=== PATIENT | female | born 1975 | race Caucasian/White ===

== ENCOUNTER 2016-05-26 14:01 | Emergency (ER) | payer BC ==
--- NOTE | 2016-05-26 14:28 | ERNOTE ---
Medical Problem HPI - General Chief Complaint: Drug Overdose Time Seen by Provider: 05/26/16 14:11 Source: patient, EMS Exam Limitations: no limitations - Immun/Allergies/Home Medications Immunizations: IMMUNIZATION HX Immunizations Up to Date Yes History of Influenza Vaccine Yes Hx Pneumococcal Vaccination No Allergies/Adverse Reactions: Allergies paroxetine HCl [From Paxil] Allergy (Mild, Verified 05/26/16 14:11) Sulfa (Sulfonamide Antibiotics) [Sulfa(Sulfonamide Antibiotics)] Allergy (Mild, Verified 05/26/16 14:11) Penicillins Allergy (Verified 05/26/16 14:11) Home Medications: HOME MEDICATIONS lamoTRIgine [Lamictal Xr] 200 mg PO HS 01/29/14 [Last Taken Unknown] Venlafaxine HCl [Effexor] 225 mg PO DAILY 08/11/14 [Last Taken Unknown] clonazePAM [Klonopin] 0.5 mg PO QID PRN 08/11/14 [Last Taken Unknown] Cyclobenzaprine HCl [Flexeril] 10 mg PO TID PRN #30 tab 09/08/15 [Last Taken Unknown] Naproxen [Naprosyn] 500 mg PO BID PRN #60 tab 09/08/15 [Last Taken Unknown] Lidocaine 700 mg TP BID #60 adh..patch 09/09/15 [Last Taken Unknown] Diazepam [Valium] 5 mg PO BID PRN #10 tab 09/13/15 [Last Taken Unknown] oxyCODONE HCL/ACETAMINOPHEN [Percocet 5 MG/325 MG] 1 tab PO Q4H PRN #20 tab [Last Taken Unknown] tiZANidine HCL [Zanaflex] 4 mg PO Q8H PRN #30 tab 09/16/15 [Last Taken Unknown] - History of Present History Narrative: Patient was having an acute stress life situation, and in brief time of profound frustration and overwhelming stress the patient took approximately 40 mg of Klonopin. Denies being suicidal at this juncture. She does admit to being profoundly overwhelmed with the stresses of life. She understands that she needs help and that is why she called the ambulance service after taking approximately 80 of the 0.5 mg Klonopin tablets. Timing: constant Severity: mild Review of Systems - Review of Systems Constitutional: Present: See HPI EYE: Present: no symptoms reported ENT: Present: no symptoms reported Respiratory: Present: no symptoms reported Cardiology: Present: no symptoms reported Gastrointestinal/Abdominal: Present: no symptoms reported Genitourinary: Present: no symptoms reported Musculoskeletal: Present: no symptoms reported Skin: Present: no symptoms reported Neurological: Present: no symptoms reported Endocrine: Present: no symptoms reported Hematologic/Lymphatic: Present: no symptoms reported Psych: Present: emotional problems - Patient's Past Medical History Patient History - Medical: Anxiety Patient History - Cardiac/Respiratory: No pertinent hx Patient History - Cancer: No Hx of Cancer Patient History - Surgical Procedures: No surgical history Patient History - Other: None LMP (Calendar): 09/02/15 - Social History Living Situations: home Abuse History: No History of abuse Psych History: Hx of Anxiety Alcohol Use: occasionally Drug Use: none - Immunizations Immunizations Up to Date: Yes Hx Pneumococcal Vaccination: No History of Influenza Vaccine: Yes Physical Exam - Physical Exam General Appearance: Present: wd/wn, alert, moderate distress, other - mostly profound emotional stress Eye Exam: Normal inspection: bilateral, PERRL: bilateral Ears, Nose, Throat: Present: normal ENT inspection, H, normal pharynx Neck: Present: normal inspection, nontender Respiratory: Present: no respiratory distress, normal breath sounds, no accessory muscle use, chest nontender, lungs clear Cardiovascular/Chest: Present: regular rate, rhythm, no murmur, normal peripheral pulses Gastrointestinal/Abdominal: Present: normal bowel sounds, nontender, nondistended, soft, no organomegaly Rectal Exam: Present: deferred Back Exam: Present: normal inspection, normal range of motion Extremity Exam: Present: normal inspection, non-tender, no edema, normal range of motion Neurological Exam: Present: alert, oriented, other - profoundly stressed but the patient denies being suicidal Skin Exam: Present: normal color, warm/dry Lymphatic Exam: Present: no adenopathy ED Progress - Results and Orders Patient's Lab Results:: I have reviewed the patient's lab results. - Vital Signs Patient's Vital Signs:: I have reviewed the patient's vital signs. Vital Signs: Vital Signs 05/26/16 14:05 Temperature 37.5 C Pulse Rate 110 H Respiratory 17 Rate Blood Pressure 147/99 O2 Sat by Pulse 94 Oximetry - Progress/Reassessment Chief Complaint: Drug Overdose Progress:: Unchanged Plan - Plan Plan: Patient will need to be admitted to our intensive care unit here, with a consult with psychiatry tomorrow. Patient does not require intubation at this juncture and she is able to talk certainly maintaining her airway. She agrees to be admitted to allow the Klonopin to wash out of the system. Departure - Departure Clinical Impression: Benzodiazepine overdose Qualifiers: Encounter type: initial encounter Injury intent: undetermined intent Qualified Code(s): T42.4X4A - Poisoning by benzodiazepines, undetermined, initial encounter Disposition: [facility] Condition: Fair - Critical Care Total Time (mins): 35 Critical Care: Consideration was given to intubating the patient however she is maintaining her airway, had good gag reflex and answered all questions appropriately.
[2016-05-26 14:39] LABS: Hemoglobin 13.5 gm/dL (12.5-16.0); Mean Cell Volume 89.7 fl (78-100); Mean Corpuscular Hgb Conc 34.6 g/dl (32-36); Mean Platelet Volume 8.3 fl (6.0-9.5); Neutrophil # 5.2 K/mm3 (1.3-6.0); Neutrophil % 64.7 % (42-75.0); Platelet Count 326 K/mm3 (150-450); Red Blood Count 4.35 M/mm3 (4.2-5.4); Red Cell Distribution Width 13.4 % (11.5-14.0); White Blood Count 8.1 K/mm3 (4.0-10.5)
[2016-05-26 14:54] LABS: ALT 32 U/L (19-67); AST 25 U/L (0-48); Albumin * 3.9 gm/dl (3.4-5.0); Alkaline Phosphatase * 76 U/L (50-170); Anion Gap 17.1 mmol/L (6.8-13.8); BUN/Creatinine Ratio 12.8 (9.0-21.6); Bilirubin, Total 0.3 mg/dL (0.0-1.1); Blood Urea Nitrogen 10 mg/dL (3-23); Ca. Corrected For Albumin 7.9 mg/dL (8.4-10.2); Calcium * 8.1 mg/dL (7.9-10.9); Carbon Dioxide 19.9 mmol/L (24-32.6); Chloride 100 mmol/L (97-106); Glucose * 106 mg/dL (70-110); Magnesium 2.2 mg/dL (1.2-2.8); Sodium 134 mmol/L (132-142); Total Protein 7.5 gm/dL (6.2-8.2)
[2016-05-26 15:48] VITALS: BP 110/72
== END 2016-05-26 15:30 | disposition left against medical advice (07) ==
LOC: ER 14:01 → SCU 15:37 → UNDOADMOB 15:37
DX: T42.4X2A Poisoning by benzodiazepines, intentional self-harm, initial encounter (principal); Y92.9 Unspecified place or not applicable; Z53.29 Procedure and treatment not carried out because of patient's decision for other reasons
CPT/HCPCS: 36415; 80053; 83735; 85025; 99291; G0480; G0481

== ENCOUNTER 2016-08-25 13:05 | Emergency (ER) | payer BC ==
--- NOTE | 2016-08-25 14:19 | ERNOTE ---
Lower Extremity HPI - Narrative Date of Service: 08/25/16 - General Lower Extremities Pain: knee: right, other: right - shoulder Time Seen by Provider: 08/25/16 14:04 - Immun/Allergies/Home Medications Immunizations: IMMUNIZATION HX Immunizations Up to Date Yes History of Influenza Vaccine Yes Hx Pneumococcal Vaccination No Allergies/Adverse Reactions: Allergies Allergy/AdvReac Type Severity Reaction Status Date / Time paroxetine HCl [From Paxil] Allergy Mild Verified 08/25/16 13:18 Sulfa (Sulfonamide Allergy Mild Verified 08/25/16 13:18 Antibiotics) [Sulfa(Sulfonamide Antibiotics)] Penicillins Allergy Verified 08/25/16 13:18 Home Medications: HOME MEDICATIONS lamoTRIgine [Lamictal Xr] 200 mg PO HS 01/29/14 [Last Taken Unknown] Venlafaxine HCl [Effexor] 225 mg PO DAILY 08/11/14 [Last Taken Unknown] clonazePAM [Klonopin] 0.5 mg PO QID PRN 08/11/14 [Last Taken Unknown] Cyclobenzaprine HCl [Flexeril] 10 mg PO TID PRN #30 tab 09/08/15 [Last Taken Unknown] oxyCODONE HCL/ACETAMINOPHEN [Percocet 5 MG/325 MG] 1 tab PO Q4H PRN #20 tab [Last Taken Unknown] Meloxicam 7.5 mg PO DAILY #30 tablet 08/25/16 [Last Taken Unknown] Review of Systems - Review of Systems Constitutional: Present: no symptoms reported. Absent: recent illness, fever, chills, weakness, fatigue, malaise EYE: Present: no symptoms reported ENT: Present: no symptoms reported Respiratory: Present: no symptoms reported. Absent: shortness of breath, cough , wheezing Cardiology: Present: no symptoms reported Gastrointestinal/Abdominal: Present: no symptoms reported. Absent: nausea, vomiting, diarrhea, abdominal pain Genitourinary: Present: no symptoms reported Musculoskeletal: Present: joint pain - R shoulder and knee Skin: Present: no symptoms reported Neurological: Present: no symptoms reported. Absent: headache, dizziness/light- headedness, numbness, tingling All Other Systems: All systems neg except as marked - Patient's Past Medical History Patient History - Medical: Anxiety Patient History - Cardiac/Respiratory: No pertinent hx Patient History - Cancer: No Hx of Cancer Patient History - Surgical Procedures: No surgical history Patient History - Other: None LMP (females 10-50): last week LMP (Calendar): 09/02/15 - Social History Living Situations: spouse Abuse History: No History of abuse Psych History: Hx of Anxiety Smoking Status: Former smoker Alcohol Use: occasionally Drug Use: none - Immunizations Immunizations Up to Date: Yes Hx Pneumococcal Vaccination: No History of Influenza Vaccine: Yes Physical Exam - Physical Exam General Appearance: Present: wd/wn, alert, no apparent distress Eye Exam: Normal inspection: bilateral, PERRL: bilateral, EOMI: bilateral Ears, Nose, Throat: Present: normal ENT inspection, normal pharynx Neck: Present: normal inspection, nontender. Absent: lymphadenopathy (R), lymphadenopathy (L) Respiratory: Present: no respiratory distress, normal breath sounds, no accessory muscle use, chest nontender, lungs clear Cardiovascular/Chest: Present: regular rate, rhythm, no murmur, normal peripheral pulses Back Exam: Present: normal inspection Extremity Exam: Present: no edema, decreased range of motion, other - beer can positive R shoulder MCL and PCL laxity post drawer positive Neurological Exam: Present: alert, oriented, normal mood/affect, no motor/ sensory deficits Skin Exam: Present: normal color, warm/dry. Absent: pallor, skin rash ED Progress - Date and Time Seen: Date and Time: 08/25/16 16:17 Pt. denies any needs for meds but would like something easier on her stomach than her scheduled Naproxen. - Vital Signs Patient's Vital Signs:: I have reviewed the patient's vital signs. Vital Signs: Vital Signs 08/25/16 13:14 Temperature 36.8 C Pulse Rate 112 H Respiratory 18 Rate Blood Pressure 153/100 O2 Sat by Pulse 99 Oximetry - X-Ray X-Ray #1 X-Ray: shoulder Interpretation: Interp. by me X-ray Comments: no obvious acute ossious abnormality X-Ray #2 X-Ray: knee Interpretation: Interp. by me X-ray Comments: no obvious acute ossious abnormality - Progress/Reassessment Chief Complaint: Lower Extremity Pain/ Injury Progress:: Unchanged Departure Clinical Impression: Posterior cruciate sprain Qualifiers: Encounter type: initial encounter Laterality: right Qualified Code(s): S83.521A - Sprain of posterior cruciate ligament of right knee, initial encounter Knee MCL sprain Qualifiers: Encounter type: initial encounter Laterality: right Qualified Code(s): S83.411A - Sprain of medial collateral ligament of right knee, initial encounter - Departure Disposition: Home self-care Condition: Good Instructions: Rotator Cuff Tendinitis, Combined Knee Ligament Sprain Additional Instructions: Please follow up with ortho by calling their office for an appointment tomorrow. Referrals: Starla Walden DO [Primary Care Provider] - Prescriptions: Meloxicam 7.5 mg PO DAILY #30 tablet
[2016-08-25 15:15] VITALS: BP 156/98
== END 2016-08-25 14:47 | disposition home or self-care (01) ==
LOC: ER 13:05
DX: S83.411A Sprain of medial collateral ligament of right knee, initial encounter (principal); M25.511 Pain in right shoulder; S83.521A Sprain of posterior cruciate ligament of right knee, initial encounter; W19.XXXA Unspecified fall, initial encounter; Z87.891 Personal history of nicotine dependence

== ENCOUNTER 2016-10-15 09:18 | Emergency (ER) | payer BC ==
[2016-10-15 09:23] VITALS: BP 143/82
== END 2016-10-15 09:31 | disposition home or self-care (01) ==
LOC: ER 09:18
DX: Z13.6 Encounter for screening for cardiovascular disorders (principal)

== ENCOUNTER 2016-11-02 07:34 | Emergency (ER) | payer BC ==
--- NOTE | 2016-11-02 08:29 | ERNOTE ---
Medical Problem HPI - General Chief Complaint: General Assessment Time Seen by Provider: 11/02/16 08:06 Source: patient Exam Limitations: no limitations - Immun/Allergies/Home Medications Immunizations: IMMUNIZATION HX Immunizations Up to Date Yes History of Influenza Vaccine Yes Hx Pneumococcal Vaccination Yes Allergies/Adverse Reactions: Allergies paroxetine HCl [From Paxil] Allergy (Mild, Verified 11/02/16 07:46) Sulfa (Sulfonamide Antibiotics) [Sulfa(Sulfonamide Antibiotics)] Allergy (Mild, Verified 11/02/16 07:46) Penicillins Allergy (Verified 11/02/16 07:46) Home Medications: HOME MEDICATIONS lamoTRIgine [Lamictal Xr] 200 mg PO HS 01/29/14 [Last Taken Unknown] Venlafaxine HCl [Effexor] 225 mg PO DAILY 08/11/14 [Last Taken Unknown] clonazePAM [Klonopin] 0.5 mg PO QID PRN 08/11/14 [Last Taken Unknown] Cyclobenzaprine HCl [Flexeril] 10 mg PO TID PRN #30 tab 09/08/15 [Last Taken Unknown] Albuterol Sulfate [Proair Hfa] 1 - 2 puff IH Q4H PRN #1 inhaler 11/02/16 [Last Taken Unknown] Doxepin HCl [Sinequan] 25 mg PO HS 11/02/16 [Last Taken Unknown] Hydrochlorothiazide [Hydrodiuril] 25 mg PO DAILY 11/02/16 [Last Taken Unknown] Lisinopril 20 mg PO DAILY 11/02/16 [Last Taken Unknown] Temazepam 15 mg PO HS 11/02/16 [Last Taken Unknown] - History of Present History Narrative: Patient is here because she feels that she is "retaining fluids". she has had some shortness of breath but denies acute chest pains now or shortness of breath. She is on Lasix 40mg and Potassium Review of Systems - Review of Systems Constitutional: Present: no symptoms reported EYE: Present: no symptoms reported ENT: Present: no symptoms reported Respiratory: Present: See HPI Cardiology: Present: See HPI Gastrointestinal/Abdominal: Present: no symptoms reported Musculoskeletal: Present: other - no swelling in ankles reported. Absent: joint swelling - Patient's Past Medical History Patient History - Medical: Anxiety Patient History - Cardiac/Respiratory: No pertinent hx Patient History - Cancer: No Hx of Cancer Patient History - Surgical Procedures: No surgical history Patient History - Other: None LMP (females 10-50): 3 weeks LMP (Calendar): 09/02/15 - Social History Living Situations: home Abuse History: No History of abuse Psych History: Hx of Anxiety Smoking Status: Current every day smoker Alcohol Use: occasionally Drug Use: none - Immunizations Immunizations Up to Date: Yes Hx Pneumococcal Vaccination: Yes History of Influenza Vaccine: Yes Physical Exam - Physical Exam General Appearance: Present: wd/wn, alert, no apparent distress Head Exam: Present: normal inspection Respiratory: Present: no respiratory distress, normal breath sounds, no accessory muscle use, chest nontender, lungs clear Cardiovascular/Chest: Present: regular rate, rhythm, no murmur, normal peripheral pulses Extremity Exam: Present: normal inspection, normal range of motion, no edema ED Progress - Results and Orders Patient's Lab Results:: I have reviewed the patient's lab results. - Vital Signs Patient's Vital Signs:: I have reviewed the patient's vital signs. Vital Signs: Vital Signs 11/02/16 07:35 Temperature 36.4 C L Pulse Rate 110 H Respiratory 18 Rate Blood Pressure 150/99 O2 Sat by Pulse 99 Oximetry - X-Ray X-Ray #1 X-Ray: chest - Progress/Reassessment Chief Complaint: General Assessment Plan - Plan Plan: This patient is not in heart failure. She has no pitting edema in while she does feel bloated or puffy at times this examiner is not comfortable increasing her Lasix to more than 40 mg daily. This patient will be reassured she is to follow up with Dr. Walden on a regular basis or as needed next week. When further questioned the patient states when she exercises she feels slightly short of breath. Patient is not in heart failure however this examiner will give the patient an albuterol inhaler just in case the patient's having symptoms of exercise-induced asthma. Her exam is clear today she's clear to auscultation. Departure - Departure Clinical Impression: Feared condition not demonstrated Disposition: Home self-care Condition: Good Referrals: Starla Walden DO [Primary Care Provider] - Prescriptions: Albuterol Sulfate [Proair Hfa] 1 - 2 puff IH Q4H PRN #1 inhaler PRN Reason: Shortness Of Breath
[2016-11-02 08:53] LABS: BUN/Creatinine Ratio 16.9 (9.0-21.6); Estimated Creat Clear 74.9
[2016-11-02 08:54] LABS: Anion Gap 17.2 mmol/L (6.8-13.8); Calcium * 8.2 mg/dL (7.9-10.9); Carbon Dioxide 21.5 mmol/L (24-32.6); Potassium 3.7 mmol/L (3.4-4.6)
[2016-11-02 08:57] VITALS: BP 127/81
== END 2016-11-02 09:25 | disposition home or self-care (01) ==
LOC: ER 07:34
DX: Z03.89 Encounter for observation for other suspected diseases and conditions ruled out (principal); F41.9 Anxiety disorder, unspecified; F17.200 Nicotine dependence, unspecified, uncomplicated

== ENCOUNTER 2017-08-14 19:42 | Observation (INO) ==
--- NOTE | 2017-08-14 20:12 | ERNOTE ---
Psychological HPI - General Chief Complaint: Drug Overdose Source: Reports: patient Exam Limitations: Reports: no limitations - Immun/Allergies/Home Medications Allergies/Adverse Reactions: Allergies paroxetine HCl [From Paxil] Allergy (Mild, Verified 11/02/16 07:46) Sulfa (Sulfonamide Antibiotics) [Sulfa(Sulfonamide Antibiotics)] Allergy (Mild, Verified 11/02/16 07:46) Penicillins Allergy (Verified 11/02/16 07:46) Home Medications: HOME MEDICATIONS lamoTRIgine [Lamictal Xr] 200 mg PO HS 01/29/14 [Last Taken Unknown] Venlafaxine HCl [Effexor] 150 mg PO DAILY 08/11/14 [Last Taken Unknown] clonazePAM [Klonopin] 1 mg PO BID PRN 08/11/14 [Last Taken Unknown] Cyclobenzaprine HCl [Flexeril] 10 mg PO TID PRN #30 tab 09/08/15 [Last Taken Unknown] Albuterol Sulfate [Proair Hfa] 1 - 2 puff IH Q4H PRN #1 inhaler 11/02/16 [Last Taken Unknown] - History of Present Illness Narrative: Pt took an excessive amount of her prescribed medications today because "I just want to sleep". She recently lost her job. Time Seen by Provider: 08/14/17 19:58 Arrived by: Reports: ambulance Onset/duration: Reports: sudden onset Intent: Reports: wants to escape Mechanism: Reports: overdose - Clonazepam #13- 1 mg tabs, cyclobenzaprine #8- 10 mg tabs at around 18:15 today. As well as drinking 8 cans of beer. Situational Problems: Reports: lost job Associated Symptoms: Reports: depressed Review of Systems - Review of Systems Constitutional: Absent: recent illness, fever EYE: Absent: vision changes Respiratory: Absent: shortness of breath Cardiology: Absent: chest pain Gastrointestinal/Abdominal: Absent: nausea, vomiting Genitourinary: Absent: frequency, pain, dysuria Skin: Absent: rash Neurological: Present: other - insomnia. Absent: headache, dizziness/light- headedness Psych: Present: See HPI, depressed - Patient's Past Medical History Patient History - Medical: Anxiety, Depression Patient History - Cardiac/Respiratory: Hypertension Patient History - Cancer: No Hx of Cancer Patient History - Surgical Procedures: No surgical history Patient History - Other: None LMP (females 10-50): this week - Social History Living Situations: home Abuse History: No History of abuse Psych History: Hx of Anxiety, Hx of Depression Smoking Status: Current every day smoker Have you smoked in the past 12 months: Yes Do you dip or chew tobacco: No Alcohol Use: heavy Drug Use: marijuana - Immunizations Immunizations Up to Date: Yes Hx Pneumococcal Vaccination: Yes History of Influenza Vaccine: Yes Psychological Exam - Exam General Appearance: Present: wd/wn, alert, crying Head Exam: Present: normal inspection, no evidence of injury Neurological: Present: alert, oriented x 3 Thoughts/Hallucinations: Present: normal thought pattern, no apparent hallucination Behavior/Eye Contact/Speech: Present: cooperative Eye Exam: Normal inspection: bilateral Ears, Nose, Throat: Present: normal except -, nasal congestion Neck: Present: normal inspection, supple Respiratory: Present: no respiratory distress, normal breath sounds, no accessory muscle use, lungs clear Cardiovascular/Chest: Present: regular rate, rhythm, no murmur Gastrointestinal/Abdominal: Present: normal bowel sounds, nontender, nondistended, soft Extremity Exam: Present: normal range of motion, no edema Skin Exam: Present: normal color, warm/dry ED Progress - Results and Orders Patient's Lab Results:: I have reviewed the patient's lab results. Results and Orders: Laboratory Tests 08/14/17 08/14/17 08/14/17 20:10 20:10 20:20 WBC 8.2 Hgb 13.6 Hct 39.9 Plt Count 356 Sodium 141 Potassium 3.2 L Chloride 104 Carbon Dioxide 23.5 L BUN 10 Creatinine 0.69 Random Glucose 91 Calcium 8.2 Total Bilirubin 0.1 AST 18 ALT 27 Alkaline Phosphatase 102 Total Protein 7.2 Albumin 3.7 TSH 1.390 Urine Color Pale yellow Urine Appearance Clear Urine pH 6.0 Ur Specific [place] <=1.005 Urine Protein Negative Urine Glucose (UA) Negative Urine Ketones Negative Urine Blood 25 H Urine Nitrate Negative Urine Bilirubin Negative Urine Urobilinogen Normal Ur Leukocyte Esterase Negative Urine RBC None seen Urine WBC 0-5 Ur Epithelial Cells 0-5 Urine Bacteria Trace Urine Culture Comments No culture indicated Salicylates 4.8 Urine Opiates Screen Acetaminophen Less than 0.2 L Barbiturate Screen Ur Phencyclidine Scrn Urine Amphetamine U Benzodiazepines Scrn Urine Cocaine Screen Urine Marijuana (THC) Ethyl Alcohol 140.0 H 08/14/17 20:20 WBC Hgb Hct Plt Count Sodium Potassium Chloride Carbon Dioxide BUN Creatinine Random Glucose Calcium Total Bilirubin AST ALT Alkaline Phosphatase Total Protein Albumin TSH Urine Color Urine Appearance Urine pH Ur Specific [place] Urine Protein Urine Glucose (UA) Urine Ketones Urine Blood Urine Nitrate Urine Bilirubin Urine Urobilinogen Ur Leukocyte Esterase Urine RBC Urine WBC Ur Epithelial Cells Urine Bacteria Urine Culture Comments Salicylates Urine Opiates Screen Negative Acetaminophen Barbiturate Screen Negative Ur Phencyclidine Scrn Negative Urine Amphetamine Negative U Benzodiazepines Scrn Negative Urine Cocaine Screen Negative Urine Marijuana (THC) Negative Ethyl Alcohol - Vital Signs Patient's Vital Signs:: I have reviewed the patient's vital signs. Vital Signs: Vital Signs 08/14/17 19:43 Temperature 36.4 C L Pulse Rate 107 H Respiratory 14 Rate Blood Pressure 150/97 O2 Sat by Pulse 99 Oximetry - EKG EKG: other - sinus tachycardia EKG read: Interp. by me - Progress/Reassessment Chief Complaint: Drug Overdose Progress Note-Subjective: 08/14/17 23:59 Pt. called me into the room and repeatedly asked if she was going to be able to go home. Her two sisters were present and stated that they could watch her throughout the weekend. Pt states that she has an appointment with her counselor on Friday. I deferred that decision until she is stable clinically. We spoke with poison control and they suggest a 12-18 hour observation due to the long 1/2 lives of the medications she ingested I spoke with Alejandra ALBERTO hospitalist, she agrees with observation admit. Time Seen by Provider: 08/14/17 19:58 Departure Clinical Impression: Overdose of medication Qualifiers: Encounter type: initial encounter Injury intent: undetermined intent Qualified Code(s): T50.904A - Poisoning by unspecified drugs, medicaments and biological substances, undetermined, initial encounter - Departure Disposition: Still a patient Condition: Fair
[2017-08-14 20:13] LABS: Hematocrit 39.9 % (37.0-47.0); Hemoglobin 13.6 gm/dL (12.5-16.0); Mean Cell Volume 94.3 fl (78-100); Mean Corpuscular Hemoglobin 32.2 pg (27-31); Mean Corpuscular Hgb Conc 34.1 g/dl (32-36); Mean Platelet Volume 8.2 fl (8-12.5); Neutrophil # 4.5 K/mm3 (1.3-6.0); Neutrophil % 55.5 % (42-75.0); Platelet Count 356 K/mm3 (150-450); Red Blood Count 4.23 M/mm3 (4.2-5.4); Red Cell Distribution Width 14.8 % (11.5-14.0); White Blood Count 8.2 K/mm3 (4.0-10.5)
[2017-08-14 20:30] LABS: Urine Bilirubin Negative (NEGATIVE); Urine Blood 25 /ul (NEGATIVE); Urine Ketone Negative (NEGATIVE); Urine Nitrite Negative (NEGATIVE); Urine Protein Negative (NEGATIVE); Urine Specific Gravity <=1.005 SP.GR. (1.005-1.010); Urine Urobilinogen Normal (NORMAL)
[2017-08-14 20:39] LABS: Urine Appearance Clear (CLEAR); Urine Bacteria TRACE; Urine Color Pale Yellow; Urine RBC None Seen /hpf (0-5); Urine WBC 0-5 /hpf (0-5)
[2017-08-14 20:40] LABS: ALT 27 U/L (19-67); AST 18 U/L (0-48); Albumin * 3.7 gm/dl (3.4-5.0); Alkaline Phosphatase * 102 U/L (50-170); Anion Gap 16.7 mmol/L (6.8-13.8); BUN/Creatinine Ratio 14.5 (9.0-21.6); Bilirubin, Total 0.1 mg/dL (0.0-1.1); Blood Urea Nitrogen 10 mg/dL (3-23); Ca. Corrected For Albumin 8.1 mg/dL (8.4-10.2); Calcium * 8.2 mg/dL (7.9-10.9); Carbon Dioxide 23.5 mmol/L (24-32.6); Chloride 104 mmol/L (97-106); Glucose * 91 mg/dL (70-110); Potassium 3.2 mmol/L (3.4-4.6); Salicylate 4.8 mg/dL (2.8-20.0); Sodium 141 mmol/L (132-142); Total Protein 7.2 gm/dL (6.2-8.2)
[2017-08-14 20:42] LABS: Cocaine Ur Negative (NEGATIVE); Urine Barbiturate Negative (NEGATIVE); Urine Benzodiazepines Negative (NEGATIVE); Urine Opiates Negative (NEGATIVE); Urine PCP Negative (NEGATIVE); Urine THC Negative (NEGATIVE)
--- NOTE | 2017-08-15 00:35 | HP ---
Chief Complaint - Chief Complaint Date of Service: 08/15/17 Time of Service: 00:27 Chief Complaint: " Intentional drug overdose'. Source of HPI- Pt; reliable, ERP report. History of Present Illness: Ms. Tabares is a 41-yr-old WF pt of Dr. Starla Walden with a PMH of Anxiety, Depression & HTN. Apparently pt was brought by the EMS after admitting to her roommate that she had overdosed on some medications. 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 She then drunk 8 cans of beer. She went to bed, but became afraid of her actions and chose to inform her room mate, who called the EMS for her. She denies any suicidal intentions with the overdose. She states that she is otherwise content with the social support from family, but appears reluctant in providing any other psychosocial issues affecting her. Dr. Singh at the [facility] is her psychiatrist and she has an upcoming appt on Friday 08/18. At the ED, her V.S were mostly stable. Toxicology screen was only positive for ETOH level of 140. Poison control contacted and they recommended a period of observation to monitor for hypotension and arrhythmias. She will remain under 1:1 staff supervision and Psychiatry will be consulted in am to eval. and clear her - Patient's Past Medical History Patient History - Medical: Anxiety, Depression Patient History - Cardiac/Respiratory: Hypertension Patient History - Cancer: No Hx of Cancer Patient History - Surgical Procedures: No surgical history Patient History - Other: None LMP (females 10-50): this week - Family History Father Family History - Medical: No pertinent hx Mother Family History - Cardiac/Respiratory: Hypertension - Social History Living Situations: home Abuse History: No History of abuse Psych History: Hx of Anxiety, Hx of Depression Smoking Status: Current every day smoker Have you smoked in the past 12 months: Yes Do you dip or chew tobacco: No Alcohol Use: heavy Drug Use: marijuana - Immunizations Immunizations Up to Date: Yes Hx Pneumococcal Vaccination: Yes History of Influenza Vaccine: Yes Review Of Systems (GEN) - Review of Systems Generalized/Overall Review: Absent: Weakness, Chills, Fever, Malaise EENTM: Absent: Eye Pain Respiratory: Absent: Cough, Shortness of Breath, Orthopnea Cardiac: Absent: Chest Pain, Edema, Palpitations Abdominal: Absent: Nausea, Vomiting, Hematemesis, Abdominal Pain, Constipation, Diarrhea Genitourinary: Absent: Burning, Itching, Urgency Musculoskeletal: Absent: Joint Pain, Back Pain, Joint Swelling Neurological: Absent: Headache, Anxiety, Depressed, Emotional Problems, Parasthesia Skin: Absent: Dryness, Lesions, Lumps Endocrine: Absent: Intolerance to Cold, Increased Thirst Misc: All systems neg except as marked Immunizations: IMMUNIZATION HX Immunizations Up to Date Yes History of Influenza Vaccine Yes Hx Pneumococcal Vaccination Yes Allergies/Adverse Reactions: Allergies Allergy/AdvReac Type Severity Reaction Status Date / Time paroxetine HCl [From Paxil] Allergy Mild Hives Verified 08/15/17 00:52 Sulfa (Sulfonamide Allergy Mild Diarrhea Verified 08/15/17 00:52 Antibiotics) [Sulfa(Sulfonamide Antibiotics)] Penicillins Allergy Verified 11/02/16 07:46 Home Medications: HOME MEDICATIONS lamoTRIgine [Lamictal Xr] 200 mg PO HS 01/29/14 [Last Taken 08/13/17 21:00] Venlafaxine HCl [Effexor] 150 mg PO DAILY 08/11/14 [Last Taken 08/14/17 08:00] clonazePAM [Klonopin] 1 mg PO BID PRN 08/11/14 [Last Taken 08/14/17 18:00] Cyclobenzaprine HCl [Flexeril] 10 mg PO TID PRN #30 tab 09/08/15 [Last Taken 18:00] Albuterol Sulfate [Proair Hfa] 1 - 2 puff IH Q4H PRN #1 inhaler 11/02/16 [Last Taken Unknown] Exam - Exam Vital Signs: Vital Signs - Last Taken Temp 36.4 C L 08/14/17 19:43 Pulse 106 H 08/14/17 23:59 Resp 14 08/14/17 23:59 BP 115/75 08/14/17 23:59 Pulse Ox 98 08/14/17 23:59 Constitutional: Present: Alert, Oriented x3, Cooperative, No distress ENT Exam: Present: normal ENT inspection Eye Exam: bilateral eye: normal inspection, PERRL Neck: Present: non-tender, full range of motion, supple Back Exam: Present: normal inspection, no CVA tenderness Respiratory: Present: lungs clear, normal breath sounds Cardiovascular/Chest: Present: normal peripheral pulses, regular rate, rhythm, no chest tenderness, no edema Abdomen: Present: Normal bowel sounds, soft, nontender /Rectal: Present: Exam deferred Extremity: Present: normal range of motion, non-tender, normal inspection, no pedal edema Skin Exam: Present: warm/dry, no cyanosis Lymphatic: Present: no adenopathy Neurologic: Present: no motor/sensory deficits, alert, normal mood/affect, oriented x 3 Appearance: Present: appropriate appearance, appropriate insight Eye contact: Present: cooperative, good eye contact, normal speech Thoughts: Present: normal thought pattern, no apparent hallucination Diagnostic Studies: Laboratory Results WBC 8.2 K/mm3 (4.0-10.5) 08/14/17 20:10 RBC 4.23 M/mm3 (4.2-5.4) 08/14/17 20:10 Hgb 13.6 gm/dL (12.5-16.0) 08/14/17 20:10 Hct 39.9 % (37.0-47.0) 08/14/17 20:10 MCV 94.3 fl (78-100) 08/14/17 20:10 MCH 32.2 pg (27-31) H 08/14/17 20:10 MCHC 34.1 g/dl (32-36) 08/14/17 20:10 RDW 14.8 % (11.5-14.0) H 08/14/17 20:10 Plt Count 356 K/mm3 (150-450) 08/14/17 20:10 MPV 8.2 fl (8-12.5) 08/14/17 20:10 Immature Gran % (Auto) 0.50 % (0.001-0.429) H 08/14/17 20:10 Immature Gran # (Auto) 0.04 K/mm3 (0.000-0.0310) H 08/14/17 20:10 Neutrophils % 55.5 % (42-75.0) 08/14/17 20:10 Lymphocytes % 35.8 % (20-51) 08/14/17 20:10 Monocytes % 5.9 % (0.0-9) 08/14/17 20:10 Eosinophils % 1.7 % (0.0-3.0) 08/14/17 20:10 Basophils % 0.6 % (0.0-1.0) 08/14/17 20:10 Nucleated RBC % 0.0 k/mm3 (0-1) 08/14/17 20:10 Neutrophils # 4.5 K/mm3 (1.3-6.0) 08/14/17 20:10 Lymphocytes # 2.92 k/mm3 (1.5-3.5) 08/14/17 20:10 Monocytes # 0.5 k/mm3 (0.0-1.0) 08/14/17 20:10 Eosinophils # 0.1 k/mm3 (0.0-0.7) 08/14/17 20:10 Absolute Basophils 0.1 k/mm3 (0.0-0.1) 08/14/17 20:10 Sodium 141 mmol/L (132-142) 08/14/17 20:10 Plasma Sodium 141 mmol/L (130-142) 08/14/17 20:10 Potassium 3.2 mmol/L (3.4-4.6) L 08/14/17 20:10 Chloride 104 mmol/L (97-106) 08/14/17 20:10 Carbon Dioxide 23.5 mmol/L (24-32.6) L 08/14/17 20:10 Anion Gap 16.7 mmol/L (6.8-13.8) H 08/14/17 20:10 BUN 10 mg/dL (3-23) 08/14/17 20:10 Creatinine 0.69 mg/dL (0.4-1.4) 08/14/17 20:10 Est GFR (Non-Af Amer) 100 mL/min (60-130) D 08/14/17 20:10 BUN/Creatinine Ratio 14.5 (9.0-21.6) 08/14/17 20:10 Random Glucose 91 mg/dL (70-110) 08/14/17 20:10 Calcium 8.2 mg/dL (7.9-10.9) 08/14/17 20:10 Calcium Adj for Albumin 8.1 mg/dL (8.4-10.2) L 08/14/17 20:10 Total Bilirubin 0.1 mg/dL (0.0-1.1) 08/14/17 20:10 AST 18 U/L (0-48) 08/14/17 20:10 ALT 27 U/L (19-67) 08/14/17 20:10 Alkaline Phosphatase 102 U/L (50-170) 08/14/17 20:10 Total Protein 7.2 gm/dL (6.2-8.2) 08/14/17 20:10 Albumin 3.7 gm/dl (3.4-5.0) 08/14/17 20:10 TSH 1.390 uIU/mL (0.358-3.74) 08/14/17 20:10 Urine Color Pale yellow 08/14/17 20:20 Urine Appearance Clear (CLEAR) 08/14/17 20:20 Urine pH 6.0 pH (5.0-7.0) 08/14/17 20:20 Ur Specific Riner <=1.005 SP.GR. (1.005-1.010) 08/14/17 20:20 Urine Protein Negative mg/dL (NEGATIVE) 08/14/17 20:20 Urine Glucose (UA) Negative mg/dL (NEGATIVE) 08/14/17 20:20 Urine Ketones Negative mg/dL (NEGATIVE) 08/14/17 20:20 Urine Blood 25 /ul (NEGATIVE) H 08/14/17 20:20 Urine Nitrate Negative (NEGATIVE) 08/14/17 20:20 Urine Bilirubin Negative mg/dl (NEGATIVE) 08/14/17 20:20 Urine Urobilinogen Normal EU/dl (NORMAL) 08/14/17 20:20 Ur Leukocyte Esterase Negative /ul (NEGATIVE) 08/14/17 20:20 Urine RBC None seen /hpf (0-5) 08/14/17 20:20 Urine WBC 0-5 /hpf (0-5) 08/14/17 20:20 Ur Epithelial Cells 0-5 /hpf (0-5) 08/14/17 20:20 Urine Bacteria Trace (NONE) 08/14/17 20:20 Urine Culture Comments No culture indicated 08/14/17 20:20 Salicylates 4.8 mg/dL (2.8-20.0) 08/14/17 20:10 Urine Opiates Screen Negative (NEGATIVE) 08/14/17 20:20 Acetaminophen Less than 0.2 mcg/mL (10.0-30.0) L 08/14/17 22:24 Barbiturate Screen Negative (NEGATIVE) 08/14/17 20:20 Ur Phencyclidine Scrn Negative (NEGATIVE) 08/14/17 20:20 Urine Amphetamine Negative (NEGATIVE) 08/14/17 20:20 U Benzodiazepines Scrn Negative (NEGATIVE) 08/14/17 20:20 Urine Cocaine Screen Negative (NEGATIVE) 08/14/17 20:20 Urine Marijuana (THC) Negative (NEGATIVE) 08/14/17 20:20 Ethyl Alcohol 140.0 mg/dL (0.0-10.0) H 08/14/17 20:10 Assessment/Plan - Assessment/Plan (1) Intentional drug overdose Assessment: Ms Tabares is a 41-yr old female who intentionally overdosed on flexeril and clonazepam pills. She was positive for ETOH only on the Tox. Screen. She is A & O X 4 . She denies having the intent to kill herself by overdose. Her V.S have been stable and she is able to protect her airway. She will be placed under observation status for remote telemetry monitoring and supportive cares with IVF hydration to prevent hypotension. Will repeat ETOH level in am and consult psychiatry to chris. She will remain under care of 1:1 staff supervision until seen by psychiatry. Problem: Acute (2) Depression Problem: Chronic (3) Anxiety Problem: Chronic (4) HTN (hypertension) Problem: Chronic Qualifiers: Hypertension type: essential hypertension Qualified Code(s): I10 - Essential (primary) hypertension
[2017-08-15] MEDS: NORMAL SALINE 1,000 ML IV PRN ×2 (01:01→08:43)
[2017-08-15] MEDS ORDERED: POTASSIUM CHLORIDE 20 MEQ TABLET.SA PO ONE (01:02)
[2017-08-15 04:52] LABS: Anion Gap 15.2 mmol/L (6.8-13.8); BUN/Creatinine Ratio 18.1 (9.0-21.6); Calcium * 8.4 mg/dL (7.9-10.9); Carbon Dioxide 22.3 mmol/L (24-32.6); Estimated Creat Clear 92.5; Potassium 3.5 mmol/L (3.4-4.6)
--- NOTE | 2017-08-15 08:50 | CONS ---
- Reason for consultation (1) Overdose of medication Date of Service: 08/15/17 Reason for Consultation:: Psychiatry consult HPI - General Date of Service: 08/15/17 Narrative: Patient states that she has been depressed and was just tired so took too many pills with alcohol in an attempt to sleep. Denies any suicidal thoughts or intent. Source: patient, RN/MD, RN notes reviewed Exam Limitations: no limitations - History of Present Illness Initial Comments: Patient recently fired from job, which is main stressor. Does see Dr. Walden and Dr. Singh. Has a therapist that she sees regularly. Is being treated for depression and anxiety. Timing/Duration: unsure Associated Symptoms: denies symptoms Allergies/Adverse Reactions: Allergies paroxetine HCl [From Paxil] Allergy (Mild, Verified 08/15/17 00:52) Hives Sulfa (Sulfonamide Antibiotics) [Sulfa(Sulfonamide Antibiotics)] Allergy (Mild, Verified 08/15/17 00:52) Diarrhea Penicillins Allergy (Verified 11/02/16 07:46) Home Medications: Home Medications Medication Instructions Recorded Last Taken lamoTRIgine [Lamictal Xr] 200 mg PO HS 01/29/14 08/13/17 21:00 Venlafaxine HCl [Effexor] 150 mg PO DAILY 08/11/14 08/14/17 08:00 clonazePAM [Klonopin] 1 mg PO BID PRN 08/11/14 08/14/17 18:00 - Patient's Past Medical History Patient History - Medical: Anxiety, Depression Patient History - Cardiac/Respiratory: Hypertension Patient History - Cancer: No Hx of Cancer Patient History - Surgical Procedures: No surgical history Patient History - Other: None LMP (females 10-50): this week LMP (Calendar): 08/07/17 - Family History Mother Family History - Cardiac/Respiratory: Hypertension Father Family History - Medical: No pertinent hx - Social History Living Situations: home Abuse History: No History of abuse Psych History: Hx of Anxiety, Hx of Depression Smoking Status: Current every day smoker Have you smoked in the past 12 months: Yes Do you dip or chew tobacco: No Patient requests Smoking Cessation Consult: No Initiate information on Smoking Cessation: Yes Alcohol Use: heavy Drug Use: marijuana - Immunizations Immunizations Up to Date: Yes Hx Pneumococcal Vaccination: Yes History of Influenza Vaccine: Yes Procedures ANESTH INJECT-SPIN CANAL (02/10/00) APPLICATION OF SPLINT (04/01/10) CLOSURE SKIN & SUBCUTANEOUS NEC (04/08/06) EPISIOTOMY (02/10/00) IRRIGATION OF EAR (12/10/98) OTHER SKIN & SUBQ I D (01/04/11) REPAIR OB LACERATION NEC (02/10/00) SIZE REDUCT PLASTIC OP (12/21/10) Medications - Medications Current Medications: Current Medications Sodium Chloride (Sodium Chloride 0.9%) 1,000 mls @ 125 mls/hr IV .Q8H PRN PRN Reason: HYDRATION Stop: 09/14/17 00:27 Last Admin: 08/15/17 01:01 Dose: 125 mls/hr Review of Systems - Review of Systems Generalized/Overall Review: Present: No Symptoms Reported Neurological: Present: Anxiety, Depressed, Emotional Problems Physical Examination - Exam Narrative: Rosalee is awake and alert. Denies overdose was a suicide attempt. Recently fired from job and states that she has been so tired. Took medication in an attempt to sleep and mixed with alcohol. States that she is being seen by a psychiatrist and a therapist regularly. States that she has an appointment scheduled with Dr. Singh on Friday. States that she slept well last night and is ready to go home. Lives with a roommate who is supportive. Will contact Dr. Singh to discuss hospital stay. Patient is cleared by psychiatry for discharge. Vital Signs: Vital Signs - Last Taken Temp 36.7 C 08/15/17 07:24 Pulse 85 08/15/17 07:24 Resp 18 08/15/17 07:24 BP 121/88 08/15/17 07:24 Pulse Ox 96 08/15/17 07:24 O2 Oxygen Delivery Method Room Air Constitutional: Present: Alert, Oriented x3, Cooperative, No distress Eye contact: Present: cooperative, good eye contact, normal speech Thoughts: Present: normal thought pattern, normal mood /affect - Results and Findings: Lab/Microbiology results last 24 hrs: Abnormal/Pending Laboratory Last 24 HRS 08/15/17 04:35 Carbon Dioxide 22.3 L Anion Gap 15.2 H - Assessments/Findings (1) Overdose of medication Problem: Acute Qualifiers: Encounter type: initial encounter Injury intent: accidental or unintentional Qualified Code(s): T50.901A - Poisoning by unspecified drugs, medicaments and biological substances, accidental (unintentional), initial encounter
--- NOTE | 2017-08-15 09:11 | DS ---
(1) Overdose of medication Problem: Acute Qualifiers: Encounter type: initial encounter Injury intent: accidental or unintentional Qualified Code(s): T50.901A - Poisoning by unspecified drugs, medicaments and biological substances, accidental (unintentional), initial encounter (2) Anxiety Problem: Chronic (3) Depression Problem: Chronic Qualifiers: Depression Type: major depressive disorder Major depression recurrence: recurrent Active/Remission status: currently active Major depression episode severity: severe Psychotic features: without psychotic features Qualified Code(s): F33.2 - Major depressive disorder, recurrent severe without psychotic features Description of Stay: ADMISSION DATE: 08/15/2017 DISCHARGE DATE: 08/15/2017 ADMISSION HPI by DOLLY Harris: Ms. Tabares is a 41-yr-old [place] pt of Dr. Starla Walden with a PMH of Anxiety, Depression & HTN. Apparently pt was brought by the EMS after admitting to her roommate that she had overdosed on some medications. 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 She then drunk 8 cans of beer. She went to bed, but became afraid of her actions and chose to inform her room mate, who called the EMS for her. She denies any suicidal intentions with the overdose. She states that she is otherwise content with the social support from family, but appears reluctant in providing any other psychosocial issues affecting her. Dr. Singh at the [facility] is her psychiatrist and she has an upcoming appt on Friday 08/18. At the ED, her V.S were mostly stable. Toxicology screen was only positive for ETOH level of 140. Poison control contacted and they recommended a period of observation to monitor for hypotension and arrhythmias. She will remain under 1:1 staff supervision and Psychiatry will be consulted in am to eval. and clear her HOSPITAL COURSE: The patient was admitted to the hospital after taking multiple medications to help her sleep as discussed above in the HPI. The patient adamantly states she was not trying to harm herself and just wanted to get some good sleep. The patients hospital stay was uneventful and she was evaluated by our DIRECTOR OF EXTENSION WORK in Psychiatry and was discharged home in stable condition. The patient will follow- up with her psychiatrist and counselor as an outpatient as well as follow-up with me within 1-2 weeks of discharge. NEW OR CHANGED MEDICATIONS: None DISCONTINUED MEDICATIONS: None Procedures Performed: none Results and Findings: Lab Pending Results 08/15/17 04:35 Sodium 138 Plasma Sodium 138 Potassium 3.5 Chloride 104 Carbon Dioxide 22.3 L Anion Gap 15.2 H BUN 13 Creatinine 0.72 Est GFR (Non-Af Amer) 95 BUN/Creatinine Ratio 18.1 Random Glucose 108 Calcium 8.4 Ethyl Alcohol 3.0 Discharge Location: Home Disposition: Home self-care Condition: Stable Discharge Activity: Activity as tolerated Discharge Diet: General/regular food Problem Oriented Discharge Instructions to Patient/Family: Smoking Cessation, Tips for Success, [id number], Drug Overdose Additional Patient Instructions (free text): Follow up appointment with Dr. Walden on 08/22/17 at 11:15am. Complete Home Medications List: Complete Home Medication List: lamoTRIgine [Lamictal Xr] 200 mg PO HS 01/29/14 Venlafaxine HCl [Effexor] 150 mg PO DAILY 08/11/14 Cyclobenzaprine HCl [Flexeril] 10 mg PO TID PRN #30 tab 09/08/15 albuterol sulfate HFA 90 mcg/actuation aerosol inhaler See Label Instructions IH .COMPLEX 08/21/17 clonidine HCl 0.2 mg tablet 0.2 mg PO DAILY tab 08/21/17 hydrochlorothiazide 25 mg tablet 25 mg PO DAILY 08/21/17 lisinopril 20 mg tablet 20 mg PO DAILY 08/21/17 lorazepam 1 mg tablet See Label Instructions PO TID PRN 30 Days #75 tab zolpidem ER 12.5 mg tablet,extended release,multiphase 12.5 mg PO HS #30 tab 08/04
[2017-08-15 09:53] VITALS: BP 144/96
== END 2017-08-15 09:50 | disposition home or self-care (01) ==
LOC: ER 19:42 → MS 23:51
PROVIDERS: ADMIT Nurse Practitioner; ATTEND Internal Medicine
DX: Z68.32 Body mass index [BMI] 32.0-32.9, adult; F33.2 Major depressive disorder, recurrent severe without psychotic features; F41.8 Other specified anxiety disorders; I10 Essential (primary) hypertension; Y92.009 Unspecified place in unspecified non-institutional (private) residence as the place of occurrence of the external cause; T51.92XA Toxic effect of unspecified alcohol, intentional self-harm, initial encounter; F17.210 Nicotine dependence, cigarettes, uncomplicated; T48.1X2A Poisoning by skeletal muscle relaxants [neuromuscular blocking agents], intentional self-harm, initial encounter; T42.4X2A Poisoning by benzodiazepines, intentional self-harm, initial encounter
CPT/HCPCS: 36415; 80048; 80053; 80307; 80320; 80329; 81001; 84443; 85025; 93005; 96360; 96361; 99284; G0378; G0479; G0480; G0481